=== PATIENT | female | born 1975 | race Two or more races ===

== ENCOUNTER 2020-07-05 12:05 | Emergency (ER) | payer BC ==
[2020-07-05] MEDS ORDERED: ACETAMINOPHEN 325 MG TABLET (FP) PO ONE (12:21)
[2020-07-05] MEDS ORDERED: ACETAMINOPHEN 325 MG TABLET (FP) ONE (12:24)
[2020-07-05 12:34] VITALS: BP 103/65; PULSE 58; TEMP 98.9; BMI 24.1
== END 2020-07-05 13:53 | disposition home or self-care (01) ==
LOC: FER 12:05
PROC: 0HQGXZZ Repair Left Hand Skin, External Approach (ICD-10-PCS; principal; 2020-07-05)
DX: S61.211A Laceration without foreign body of left index finger without damage to nail, initial encounter (principal)
CPT/HCPCS: 99283-25

== ENCOUNTER 2020-07-18 11:20 | Emergency (ER) | payer BC ==
[2020-07-18 11:30] VITALS: BP 98/86; PULSE 62; TEMP 99; BMI 25.0
== END 2020-07-18 11:40 | disposition home or self-care (01) ==
LOC: FER 11:20 → SUPCPDRO 11:20 → FER 11:40
DX: Z48.02 Encounter for removal of sutures (principal)
CPT/HCPCS: 99281-25